=== PATIENT | male | born 1965 | race Caucasian/White ===

== ENCOUNTER 2016-06-24 03:47 | Emergency (ER) | payer OTHER ==
[2016-06-24 04:04] VITALS: RESP 16; TEMP 98.1; O2SAT 93
[2016-06-24] MEDS ORDERED: TDAP ADULT 0.5 ML INJ (BOOSTRIX) IM ONE (04:11)
[2016-06-24] MEDS ORDERED: SKIN ADHESIVE (DERMABOND) 1 EACH TP ONE (04:11)
--- NOTE | 2016-06-24 05:06 | EDPHY ---
H & P Stated Complaint: pt tripped/fell at home, hit head on bedside table - lac to mid forehead HPI/ROS: HPI The patient presents with a fall which occurred at approximately midnight tonight. The patient was walking to his bed and tripped and fell with his forehead hitting his bedside table. He did not lose consciousness. He sustained a laceration to his forehead that was bleeding heavily. He was not able to control the bleeding, so he called 911. He admits to drinking alcohol tonight. He is on Plavix for CAD. Denies any nausea or vomiting, changes to his vision, weakness in his arms or legs. He does not have a headache. REVIEW OF SYSTEMS Constitutional: No fever, no chills. Eyes: No discharge. ENT: No sore throat. Cardiovascular: No chest pain, no palpitations. Respiratory: No cough, no shortness of breath. Gastrointestinal: No abdominal pain, no vomiting. Genitourinary: No hematuria. Musculoskeletal: No back pain. Skin: No rashes. Neurological: No headache. PMHx: CAD, hypertension Soc Hx: Alcohol use, housed PHYSICAL General Appearance: Alert, no distress Eyes: Pupils equal and round no pallor or injection ENT, Mouth: Mucous membranes moist Respiratory: There are no retractions, lungs are clear to auscultation Cardiovascular: Regular rate and rhythm Gastrointestinal: Abdomen is soft and non-tender, no masses, bowel sounds normal Neurological: A&O, moves all extremities Skin: Warm and dry, mid forehead with 2 cm somewhat gaping laceration with mild active bleeding Musculoskeletal: Neck is supple non tender Extremities: symmetrical, full range of motion Psychiatric: Patient is oriented X 3, there is no agitation Source: Patient, EMS Exam Limitations: No limitations - Personal History Tetanus Vaccine Date: 2003 - Medical/Surgical History Hx Asthma: No Hx Chronic Respiratory Disease: No Hx Diabetes: No Hx Cardiac Disease: Yes Hx Renal Disease: No Hx Cirrhosis: No Hx Alcoholism: Yes Hx HIV/AIDS: No Hx Splenectomy or Spleen Trauma: No Other PMH: CABGx1, stents x5, ETOH abuse, hypertension, hyperlipidemia, psoriasis - Social History Smoking Status: Current every day smoker Constitutional: Initial Vital Signs Temperature (C) 36.7 C 06/24/16 04:01 Heart Rate 74 06/24/16 04:01 Respiratory Rate 16 06/24/16 04:01 Blood Pressure 124/87 H 06/24/16 04:01 O2 Sat (%) 93 06/24/16 04:01 O2 Delivery Mode Room Air Allergies/Adverse Reactions: No Known Allergies Allergy (Verified 06/24/16 04:04) Home Medications: Medication Instructions Recorded Adalimumab [Humira] 40 mg SQ Q14D 04/21/16 Aspirin [Aspirin 81mg (*)] 81 mg PO DAILY 04/21/16 Clopidogrel Bisulfate [Plavix (*)] 75 mg PO DAILY 04/21/16 Metoprolol Tartrate [Lopressor 50 50 mg PO BID 04/21/16 mg (*)] Simvastatin [Zocor] 40 mg PO DAILY 04/21/16 Acetaminophen [Tylenol 325mg (*)] 650 mg PO Q6HRS PRN #0 tab 04/22/16 Multivitamins [Multivitamin (*)] 1 each PO DAILY 04/22/16 Nitroglycerin [Nitrostat 0.4 mg 0.4 mg SL Q5M PRN #20 btl 04/22/16 (*)] [place]-3 Fatty Acids [Fish Oil 1000 1,000 mg PO DAILY 04/22/16 mg (*)] Medical Decision Making - Diagnostics Imaging: CT scan of head without contrast demonstrates no intracranial hemorrhage, discussed with the radiologist Dr. Clemens. Procedures: Procedure: Laceration repair with skin glue. The 2 cm laceration on the forehead. The wound was cleaned and explored to its base with a gloved finger. There were no deep structures involved. The wound was repaired with tissue adhesive. The procedure was performed by myself. ED Course/Re-evaluation: 4:00 a.m.- I met the paramedics at the bedside to obtain the report. I have ordered a CT scan, updated the patient's tetanus vaccine, and wound irrigation. 5:10 a.m.- The patient's CT scan is unremarkable, I have discussed this with him. His wound has been repaired. There is a small risk of delayed bleeding given that he is on Plavix. I have explained this to him. He is to return to the emergency room for any vomiting, headache, dizziness, vision changes or any other concerns. Differential Diagnosis: Is this is a 51-year-old man with CAD on Plavix who presents after drinking tonight, subsequently with a fall, hitting his head on a bedside table. He reports that there was significant amount of bleeding at home which is now resolved. He did not lose consciousness, does not have a headache, vomiting, any other injuries. Differential diagnosis includes intracranial hemorrhage, forehead laceration, mechanical fall. - Data Points Medications Given: Discontinued Medications Diphtheria/Tetanus/Acell Pertussis (Boostrix) 0.5 ml IM .ONCE ONE Stop: 06/24/16 04:12 Last Admin: 06/24/16 04:21 Dose: 0.5 ml Octyl Cyanoacrylate (Dermabond) 1 each TP EDNOW ONE Stop: 06/24/16 04:12 Last Admin: 06/24/16 04:21 Dose: 1 each Departure - Departure Disposition: Home, Routine, Self-Care Clinical Impression: Forehead laceration, Alcohol intoxication, Fall Condition: Good Instructions: Skin Adhesive Care (ED) Additional Instructions: Please return to the emergency room if your worse in any way. Referrals: NONE *PRIMARY CARE P,. [Primary Care Provider] - As per Instructions
[2016-06-24 05:14] VITALS: BP 95/63; PULSE 71
--- NOTE | 2016-06-24 09:38 | CT ---
Noncontrast Head CT 420 hours History: Head trauma with frontal laceration. On blood thinners. Rule out intracranial hemorrhage. Technique: Standard noncontrast head CT protocol utilizing axial images was acquired through the avelina varium. Images were reconstructed in multiple planes as well. Dose reduction techniques were utilized . Findings: The cerebral parenchyma has a normal attenuation throughout. There are no masses, intracran ial hemorrhage, subdural collections, or evidence of recent cerebral infarction. The bones are unrem arkable. Gas bubble is seen with associated mild soft tissue swelling over the frontal bone from lace ration and contusion. The paranasal sinuses are clear. Impression: 1. No acute intracranial abnormality seen. 2. Soft tissue swelling with laceration over the frontal bone. The study was performed as an emergency on-call case and discussed by telephone with Dr. Carrie foley at 427 hrs. The final interpretation is concordant with the original communication.
== END 2016-06-24 05:14 | disposition home or self-care (01) ==
LOC: EDUNIT#
PROC: 0HQ1XZZ Repair Face Skin, External Approach (ICD-10-PCS; principal; 2016-06-24)
DX: S01.81XA Laceration without foreign body of other part of head, initial encounter (principal); F10.129 Alcohol abuse with intoxication, unspecified; I10 Essential (primary) hypertension; I25.810 Atherosclerosis of coronary artery bypass graft(s) without angina pectoris; F17.200 Nicotine dependence, unspecified, uncomplicated; Z23 Encounter for immunization; Z95.5 Presence of coronary angioplasty implant and graft; Z79.82 Long term (current) use of aspirin; W01.198A Fall on same level from slipping, tripping and stumbling with subsequent striking against other object, initial encounter; Y92.009 Unspecified place in unspecified non-institutional (private) residence as the place of occurrence of the external cause

== ENCOUNTER 2018-02-05 07:37 | Observation (INO) | payer OTHER ==
--- NOTE | 2018-02-05 07:46 | EDPHY ---
H & P Time Seen by Provider: 02/05/18 07:46 HPI/ROS: CHIEF COMPLAINT: Vomiting blood HISTORY OF PRESENT ILLNESS: Patient is a history of bypass surgery and stenting on Plavix. He has had "dry heaves" for the past 2 weeks. A week ago he had black tarry diarrhea stool for 2 days which resolved. Yesterday he had 3 episodes of vomiting to with geovanny blood and over the last 24 hr dark black tarry stools again. This is associated with a little bit of abdominal discomfort, no bruising or bleeding on the skin. He does not have a previous history of upper GI bleed or varices. Currently has some nausea. Symptoms are moderate. Not associated with fever or chills, not better worse with anything. REVIEW OF SYSTEMS: Eye: no change in vision ENT: no sore throat Cardiac: no chest pain or syncope Pulmonary: no cough or SOB Abdomen: HPI Musculoskeletal: no back pain Skin: no rash Neuro: no headache Constitutional: no fever : no urinary symptoms A comprehensive 10 point review of systems is otherwise negative aside from elements mentioned in the history of present illness. PAST MEDICAL HISTORY: Includes coronary artery bypass grafting and coronary stenting on Plavix. History of hypertension, hyperlipidemia, psoriasis on Humira Social history: Tobacco smoker, continues to drink alcohol. General Appearance: Alert and conversant, cooperative. Eyes: No scleral icterus. ENT, Mouth: Dry mucous membranes. Respiratory: Normal respiratory effort, breath sounds equal, lungs are clear to auscultation. Cardiovascular: Regular rate and rhythm. No murmur. Gastrointestinal: Abdomen is soft and non tender. Rectal exam shows dark stool sent for Hemoccult. Neurological: Alert, face symmetric, normal motor and sensory in extremities. Skin: Warm and dry, no rashes. Musculoskeletal: No peripheral edema. Psychiatric: Not agitated. Emergency Department course/MDM: Initial heart rate 99, blood pressure 90/72. Zofran 4 mg IV, IV fluid hydration, CBC chemistry type and screen and fecal occult blood. 826: Hematocrit 39, was 48 in July of this year on his last draw. IV Protonix, admission for fluid resuscitation and GI consultation probable EGD. 850: Results and plan discussed with patient who is agreeable with admission and GI consultation. 930: 2nd L IV fluid ordered for borderline hypotension and tachycardia, melena on exam, and 9 point drop in hematocrit. Smoking Status: Current some day smoker Constitutional: Initial Vital Signs Temperature (C) 36.4 C 02/05/18 07:40 Heart Rate 99 02/05/18 07:40 Respiratory Rate 18 02/05/18 07:40 Blood Pressure 90/72 L 02/05/18 07:40 O2 Sat (%) 98 02/05/18 07:40 O2 Delivery Mode Room Air Allergies/Adverse Reactions: No Known Allergies Allergy (Verified 02/05/18 07:44) Home Medications: Medication Instructions Recorded Adalimumab [Humira] 40 mg SQ Q14D 04/21/16 Clopidogrel Bisulfate [Plavix (*)] 75 mg PO DAILY18 04/21/16 Metoprolol Tartrate [Lopressor 50 50 mg PO BID 04/21/16 mg (*)] Simvastatin [Zocor] 40 mg PO DAILY18 04/21/16 Multivitamins [Multivitamin (*)] 1 each PO DAILY 04/22/16 [place]-3 Fatty Acids [Fish Oil 1000 1,000 mg PO DAILY 04/22/16 mg (*)] Aspirin [Aspirin 325 mg (*)] 325 mg PO DAILY 02/05/18 Enalapril Maleate [Vasotec 2.5 MG 2.5 mg PO DAILY18 02/05/18 (*)] Medical Decision Making - Diagnostics EKG Interpretation: 12-lead EKG interpreted by me; official reading is in computer system. My interpretation is sinus rhythm rate 91 with no acute ischemic changes and normal intervals. Differential Diagnosis: Differential considered including but not limited to upper GI bleed, lower GI bleed, coagulopathy, esophageal varices, ulcer disease Consult/Admit Bed Type: [facility] 836, [facility] 845 Critical Care Time: Critical care time spent by me, Dr. Valencia, exclusively with the care of this patient was 30 minutes, exclusive of PA or [employer] time and exclusive of separate procedures. The organ system at risk was gastroenterologic hematologic and I ordered multiple diagnostics, Zofran and Protonix, IV fluid resuscitation, discussion with hospitalist and gastroenterology to stabilize the patient and prevent worsening of the patient's condition. - Data Points Laboratory Results: Laboratory Results 02/05/18 08:05 02/05/18 08:05 02/05/18 02/05/18 02/05/18 08:27 08:05 08:05 WBC RBC Hgb POC Hgb 14.6 gm/dL gm/dL (13.7-17.5) Hct POC Hct 43 % % (40-51) MCV MCH MCHC RDW Plt Count MPV Neut % (Auto) Lymph % (Auto) [place] % (Auto) Eos % (Auto) Baso % (Auto) Nucleat RBC Rel Count Absolute Neuts (auto) Absolute Lymphs (auto) Absolute Monos (auto) Absolute Eos (auto) Absolute Basos (auto) Absolute Nucleated RBC Immature Gran % Immature Gran # PT INR APTT POC Sodium 132 mEq/L L mEq/L (135-145) Sodium 133 mEq/L L mEq/L (135-145) POC Potassium 3.6 mEq/L mEq/L (3.3-5.0) Potassium 4.0 mEq/L mEq/L (3.3-5.0) POC Chloride 93 mEq/L L mEq/L (97-110) Chloride 93 mEq/L L mEq/L (97-110) Carbon Dioxide 25 mEq/l mEq/l (22-31) Anion Gap 15 mEq/L mEq/L (8-16) POC BUN 21 mg/dL mg/dL (7-23) BUN 23 mg/dL mg/dL (7-23) Creatinine 0.9 mg/dL mg/dL (0.7-1.3) POC Creatinine 1.0 mg/dL mg/dL (0.7-1.3) Estimated GFR > 60 Glucose 120 mg/dL H mg/dL (70-100) POC Glucose 119 mg/dL H mg/dL (70-100) Calcium 9.7 mg/dL mg/dL (8.5-10.4) Stool Occult Bld Scrn Patient ABO/Rh AB POSITIVE Antibody Screen NEGATIVE 02/05/18 02/05/18 02/05/18 08:05 08:05 08:04 WBC 6.78 10^3/uL 10^3/uL (3.80-9.50) RBC 3.74 10^6/uL L 10^6/uL (4.40-6.38) Hgb 14.1 g/dL g/dL (13.7-17.5) POC Hgb Hct 39.0 % L % (40.0-51.0) POC Hct MCV 104.3 fL H fL (81.5-99.8) MCH 37.7 pg H pg (27.9-34.1) MCHC 36.2 g/dL g/dL (32.4-36.7) RDW 12.0 % % (11.5-15.2) Plt Count 233 10^3/uL 10^3/uL (150-400) MPV 10.1 fL fL (8.7-11.7) Neut % (Auto) 71.1 % % (39.3-74.2) Lymph % (Auto) 16.5 % % (15.0-45.0) [place] % (Auto) 11.5 % % (4.5-13.0) Eos % (Auto) 0.3 % L % (0.6-7.6) Baso % (Auto) 0.3 % % (0.3-1.7) Nucleat RBC Rel Count 0.0 % % (0.0-0.2) Absolute Neuts (auto) 4.82 10^3/uL 10^3/uL (1.70-6.50) Absolute Lymphs (auto) 1.12 10^3/uL 10^3/uL (1.00-3.00) Absolute Monos (auto) 0.78 10^3/uL 10^3/uL (0.30-0.80) Absolute Eos (auto) 0.02 10^3/uL L 10^3/uL (0.03-0.40) Absolute Basos (auto) 0.02 10^3/uL 10^3/uL (0.02-0.10) Absolute Nucleated RBC 0.00 10^3/uL 10^3/uL (0-0.01) Immature Gran % 0.3 % % (0.0-1.1) Immature Gran # 0.02 10^3/uL 10^3/uL (0.00-0.10) PT 13.5 SEC SEC (12.0-15.0) INR 1.01 (0.83-1.16) APTT 30.0 SEC SEC (23.0-38.0) POC Sodium Sodium POC Potassium Potassium POC Chloride Chloride Carbon Dioxide Anion Gap POC BUN BUN Creatinine POC Creatinine Estimated GFR Glucose POC Glucose Calcium Stool Occult Bld Scrn POSITIVE H (NEGATIVE) Patient ABO/Rh Antibody Screen Medications Given: Discontinued Medications Sodium Chloride (Ns) 1,000 mls @ 0 mls/hr IV EDNOW ONE; Wide Open PRN Reason: Protocol Stop: 02/05/18 07:58 Last Admin: 02/05/18 08:19 Dose: 1,000 mls Ondansetron HCl (Zofran) 4 mg IVP EDNOW ONE Stop: 02/05/18 08:12 Last Admin: 02/05/18 08:19 Dose: 4 mg Pantoprazole Sodium (Protonix) 80 mg IVP EDNOW ONE Stop: 02/05/18 08:39 Last Admin: 02/05/18 08:42 Dose: 80 mg Point of Care Test Results: Chemistry 02/05/18 08:27 POC Sodium 132 mEq/L L mEq/L (135-145) POC Potassium 3.6 mEq/L mEq/L (3.3-5.0) POC Chloride 93 mEq/L L mEq/L (97-110) POC BUN 21 mg/dL mg/dL (7-23) POC Creatinine 1.0 mg/dL mg/dL (0.7-1.3) POC Glucose 119 mg/dL H mg/dL (70-100) ISTAT H&H 02/05/18 08:27 POC Hgb 14.6 gm/dL gm/dL (13.7-17.5) POC Hct 43 % % (40-51) Departure - Departure Disposition: [facility] Inpatient Acute Clinical Impression: Upper GI bleeding Condition: Fair
[2018-02-05] MEDS ORDERED: NS 1,000 ML IV ONE ×2 (07:57→09:25)
[2018-02-05] MEDS ORDERED: ONDANSETRON 4 MG/2 ML VIAL IVP ONE (08:11)
[2018-02-05 08:23] LABS: PLATELET COUNT 233 10^3/uL (150-400)
--- NOTE | 2018-02-05 08:28 | CPEKG ---
Test Reason : OPEN Blood Pressure : / mmHG Vent. Rate : 091 BPM Atrial Rate : 092 BPM P-R Int : 155 ms QRS Dur : 100 ms QT Int : 362 ms P-R-T Axes : 032 071 025 degrees QTc Int : 446 ms Sinus rhythm Probable left atrial enlargement Confirmed by Oscar Valencia ([id number]) on 02/05/2018 8:27:31 AM Referred By: Confirmed By:Oscar Valencia
[2018-02-05 08:30] LABS: INR 1.01 (0.83-1.16); PROTIME(PATIENT) 13.5 SEC (12.0-15.0)
[2018-02-05] MEDS ORDERED: PANTOPRAZOLE SODIUM 40 MG VIAL IVP ONE (08:38)
[2018-02-05] MEDS ORDERED: ACETAMINOPHEN 325 MG TAB PO PRN (09:11)
[2018-02-05] MEDS ORDERED: FLUMAZENIL 0.5 MG/5 ML MDV IVP PRN (09:14)
[2018-02-05] MEDS ORDERED: LORazepam 2 MG/ML INJ IVP PRN (09:14)
[2018-02-05] MEDS ORDERED: D5W NS W/ 20 KCl/L 1,000 ML IV SCH (09:45)
[2018-02-05] MEDS ORDERED: OCTREOTIDE ACETATE 500 MCG in D5W 50 ML IV SCH (09:45)
[2018-02-05] MEDS ORDERED: LR 1,000 ML IV ONE (11:12)
--- NOTE | 2018-02-05 11:32 | PDGENHP ---
History and Physical - Chief Complaint blood in vomit - History of Present Illness 52yo M with history of CAD s/p CABG (2010) and coronary stenting (2011), etoh abuse who presents with 2 weeks of black, tarry stools. Noticed bright red blood in emesis that started yesterday and prompted him to come to ED this morning. He reports diffuse abdominal discomfort and some positional dizziness since yesterday as well. Denies fevers. Drinks 5 "light beers" per day, previously much more. No known cirrhosis. Took aspirin and plavix yesterday. Also has been taking advil PM nightly for many years. In the ED, BP noted to be 90/70s with mild tachycardia. Hgb 14.1 which was down from 16.8 six months ago. He was given IVF, IV PPI, and GI was consulted. Case discussed with ED physician Dr Oscar Whiting and prior records reviewed. History Information - Allergies/Home Medication List Allergies/Adverse Reactions: No Known Allergies Allergy (Verified 02/05/18 07:44) Home Medications: Adalimumab [Humira] 40 mg SQ Q14D 04/21/16 [Last Taken 01/26/18] Clopidogrel Bisulfate [Plavix (*)] 75 mg PO DAILY18 04/21/16 [Last Taken ] Metoprolol Tartrate [Lopressor 50 mg (*)] 50 mg PO BID 04/21/16 [Last Taken 02/13 21:00] Simvastatin [Zocor] 40 mg PO DAILY18 04/21/16 [Last Taken 02/04/18] Multivitamins [Multivitamin (*)] 1 each PO DAILY 04/22/16 [Last Taken 04/21/16] [place]-3 Fatty Acids [Fish Oil 1000 mg (*)] 1,000 mg PO DAILY 04/22/16 [Last Taken 04/21/16] Aspirin [Aspirin 325 mg (*)] 325 mg PO DAILY 02/05/18 [Last Taken 02/04/18] Enalapril Maleate [Vasotec 2.5 MG (*)] 2.5 mg PO DAILY18 02/05/18 [Last Taken ] I have personally reviewed and updated: family history, medical history, social history, surgical history - Past Medical History Additional medical history: CAD s/p 2v CABG (08/2010) complicated by medication non-adherence leading to PCI with 5 stents 10/2011; HTN; Psoriasis; EtOH abuse complicated by withdrawals - Surgical History Additional surgical history: CABG (2010) - Family History Additional family history: mother - CAD, HTN; maternal grandfather - CAD; no family hx of bleeding or clotting disorders - Social History Smoking Status: Current some day smoker Alcohol Use: Other (drinks 5 beers/day) Drug Use: None Additional social history: 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 Review of Systems Review of Systems: ROS: 10pt was reviewed & negative except for what was stated in HPI & below Physical Exam Physical Exam: Temp Pulse Resp BP Pulse Ox 37.1 C 89 18 103/67 95 02/05/18 11:13 02/05/18 11:13 02/05/18 11:13 02/05/18 11:13 02/05/18 11:13 Constitutional: no apparent distress, appears nourished, not in pain Eyes: PERRL, anicteric sclera, EOMI Ears, Nose, Mouth, Throat: moist mucous membranes, hearing normal, ears appear normal, no oral mucosal ulcers Cardiovascular: regular rate and rhythym, no murmur, rub, or gallop, No JVD, No edema Respiratory: no respiratory distress, no rales or rhonchi, clear to auscultation Gastrointestinal: normoactive bowel sounds, soft, non-tender abdomen, no palpable masses Skin: warm, normal color, no rashes or abrasions, no fluctuance, no induration, other (no stigmata of chronic liver disease), No mottled Neurologic: other (no tongue fasciculations, no hand tremor) Psychiatric: interacting appropriately, not anxious, not encephalopathic, thought process linear Lab Data & Imaging Review 02/05/18 08:05 02/05/18 08:05 WBC 6.78 10^3/uL (3.80-9.50) 02/05/18 08:05 RBC 3.74 10^6/uL (4.40-6.38) L 02/05/18 08:05 Hgb 14.1 g/dL (13.7-17.5) 02/05/18 08:05 POC Hgb 14.6 gm/dL (13.7-17.5) 02/05/18 08:27 Hct 39.0 % (40.0-51.0) L 02/05/18 08:05 POC Hct 43 % (40-51) 02/05/18 08:27 MCV 104.3 fL (81.5-99.8) H 02/05/18 08:05 MCH 37.7 pg (27.9-34.1) H 02/05/18 08:05 MCHC 36.2 g/dL (32.4-36.7) 02/05/18 08:05 RDW 12.0 % (11.5-15.2) 02/05/18 08:05 Plt Count 233 10^3/uL (150-400) 02/05/18 08:05 MPV 10.1 fL (8.7-11.7) 02/05/18 08:05 Neut % (Auto) 71.1 % (39.3-74.2) 02/05/18 08:05 Lymph % (Auto) 16.5 % (15.0-45.0) 02/05/18 08:05 [place] % (Auto) 11.5 % (4.5-13.0) 02/05/18 08:05 Eos % (Auto) 0.3 % (0.6-7.6) L 02/05/18 08:05 Baso % (Auto) 0.3 % (0.3-1.7) 02/05/18 08:05 Nucleat RBC Rel Count 0.0 % (0.0-0.2) 02/05/18 08:05 Absolute Neuts (auto) 4.82 10^3/uL (1.70-6.50) 02/05/18 08:05 Absolute Lymphs (auto) 1.12 10^3/uL (1.00-3.00) 02/05/18 08:05 Absolute Monos (auto) 0.78 10^3/uL (0.30-0.80) 02/05/18 08:05 Absolute Eos (auto) 0.02 10^3/uL (0.03-0.40) L 02/05/18 08:05 Absolute Basos (auto) 0.02 10^3/uL (0.02-0.10) 02/05/18 08:05 Absolute Nucleated RBC 0.00 10^3/uL (0-0.01) 02/05/18 08:05 Immature Gran % 0.3 % (0.0-1.1) 02/05/18 08:05 Immature Gran # 0.02 10^3/uL (0.00-0.10) 02/05/18 08:05 PT 13.5 SEC (12.0-15.0) 02/05/18 08:05 INR 1.01 (0.83-1.16) 02/05/18 08:05 APTT 30.0 SEC (23.0-38.0) 02/05/18 08:05 POC Sodium 132 mEq/L (135-145) L 02/05/18 08:27 Sodium 133 mEq/L (135-145) L 02/05/18 08:05 POC Potassium 3.6 mEq/L (3.3-5.0) 02/05/18 08:27 Potassium 4.0 mEq/L (3.3-5.0) 02/05/18 08:05 POC Chloride 93 mEq/L (97-110) L 02/05/18 08:27 Chloride 93 mEq/L (97-110) L 02/05/18 08:05 Carbon Dioxide 25 mEq/l (22-31) 02/05/18 08:05 Anion Gap 15 mEq/L (8-16) 02/05/18 08:05 POC BUN 21 mg/dL (7-23) 02/05/18 08:27 BUN 23 mg/dL (7-23) 02/05/18 08:05 Creatinine 0.9 mg/dL (0.7-1.3) 02/05/18 08:05 POC Creatinine 1.0 mg/dL (0.7-1.3) 02/05/18 08:27 Estimated GFR > 60 02/05/18 08:05 Glucose 120 mg/dL (70-100) H 02/05/18 08:05 POC Glucose 119 mg/dL (70-100) H 02/05/18 08:27 Calcium 9.7 mg/dL (8.5-10.4) 02/05/18 08:05 Stool Occult Bld Scrn POSITIVE (NEGATIVE) H 02/05/18 08:04 Patient ABO/Rh AB POSITIVE 02/05/18 08:05 Antibody Screen NEGATIVE 09/10/18 08:05 Visualized and Interpreted EKG results: Yes EKG additional interpertation: NSR, no acute ischemia, QTc 446 Assessment & Plan Assessment: 52yo M with history of CAD s/p CABG (2010) and coronary stenting (2012), etoh abuse who presents with evidence of upper GI bleed. Plan: #Upper GI bleed: Risk factors include ongoing etoh use, dual antiplatelet therapy, and concomitant nsaid use. He had abdominal US in 2012 which showed hepatomegaly but no cirrhosis and he does not have stigmata of chronic liver disease on exam. Ddx: PUD, gastritis/esophagitis, MW tear, less likely esophageal varices. - Maintain large bore IV access - Type and screened - Pantoprazole IV BID - Holding antiplatelet/anticoagulant agents - GI consulted (Dr Espino), plan for EGD today #Hypotension: BP 90/70s. - Hold home anti-hypertensives - IVF PRN to keep MAP>65 #EtOH abuse: Has history of withdrawal but no seizures; at risk during this hospitalization. - CIWA - Thiamine, MV, folate; monitor and replete electrolytes #CAD: Had CABG in 2010 followed by placement of 5 stents in 2012. Currently without anginal sxs. - Holding aspirin, clopidogrel, BB as above - Continue statin #Psoriasis: Reportedly on biweekly humira. Diet: NPO VTE ppx: high risk, SCDs due to bleeding risk Code: full Disposition: Admit under observation to SDU for management of GI bleed as above.
[2018-02-05] MEDS ORDERED: PROPOFOL 200 MG/20 ML VIAL ONE ×2 (11:55)
[2018-02-05] MEDS ORDERED: fentaNYL 100 MCG/2 ML INJ ONE (12:21)
[2018-02-05] MEDS ORDERED: ONDANSETRON 4 MG/2 ML VIAL ONE (12:24)
[2018-02-05] MEDS ORDERED: DEXAMETHASONE 4 MG/ML VIAL ONE (12:24)
[2018-02-05] MEDS ORDERED: LIDOCAINE 2% 100 MG/5 ML SYR ONE (12:24)
[2018-02-05] MEDS ORDERED: SUCCINYLCHOLINE CHLORIDE 200 MG/10 ML SYR IVP ONE (12:24)
[2018-02-05] MEDS ORDERED: HYDROmorphONE/DILAUDID 1 MG/ML INJ IVP PRN (12:29)
[2018-02-05] MEDS ORDERED: ACETAMINOPHEN 500 MG TAB PO PRN (12:29)
[2018-02-05] MEDS ORDERED: HYDROCODONE/APAP 5/325 TAB PO PRN (12:29)
[2018-02-05] MEDS ORDERED: LR 500 ML IV PRN (12:29)
[2018-02-05] MEDS ORDERED: oxyCODONE IR 5 MG TAB PO PRN (12:29)
[2018-02-05] MEDS ORDERED: fentaNYL 100 MCG/2 ML INJ IVP PRN (12:29)
[2018-02-05] MEDS ORDERED: METOCLOPRAMIDE 10 MG/2 ML VIAL IVP PRN (12:29)
[2018-02-05] MEDS ORDERED: NALOXONE HCL 0.4 MG/ML INJ IVP PRN (12:29)
[2018-02-05] MEDS ORDERED: ALBUTEROL 3 ML DEYVIAL IH PRN (12:29)
[2018-02-05] MEDS ORDERED: PROMETHAZINE HCL 25 MG/ML INJ IVP PRN (12:29)
[2018-02-05] MEDS ORDERED: ONDANSETRON 4 MG/2 ML VIAL IVP PRN (12:29)
--- NOTE | 2018-02-05 12:29 | PDANEPAE ---
ANE History of Present Illness upper GI bleed for EGD ANE Past Medical History - Cardiovascular History Hx Hypertension: Yes Hx Arrhythmias: No Hx Chest Pain: No Hx Coronary Artery / Peripheral Vascular Disease: Yes Hx CHF / Valvular Disease: No Hx Palpitations: No - Pulmonary History Hx COPD: No Hx Asthma/Reactive Airway Disease: No Hx Recent Upper Respiratory Infection: No Hx Oxygen in Use at Home: No Hx Sleep Apnea: No Sleep Apnea Screening Result - Last Documented: Positive - Endocrine History Hx Diabetes: No Obesity: no - Chronic Pain History Chronic Pain: No ANE Review of Systems Review of systems is: negative Review of Systems: ANE Patient History - Allergies Allergies/Adverse Reactions: No Known Allergies Allergy (Verified 02/05/18 07:44) - Home Medications Home medications: home medication list seen and reviewed Home Medications: Adalimumab [Humira] 40 mg SQ Q14D 04/21/16 [Last Taken 01/26/18] Clopidogrel Bisulfate [Plavix (*)] 75 mg PO DAILY18 04/21/16 [Last Taken ] Metoprolol Tartrate [Lopressor 50 mg (*)] 50 mg PO BID 04/21/16 [Last Taken 02/13 21:00] Simvastatin [Zocor] 40 mg PO DAILY18 04/21/16 [Last Taken 02/04/18] Multivitamins [Multivitamin (*)] 1 each PO DAILY 04/22/16 [Last Taken 04/21/16] [place]-3 Fatty Acids [Fish Oil 1000 mg (*)] 1,000 mg PO DAILY 04/22/16 [Last Taken 04/21/16] Aspirin [Aspirin 325 mg (*)] 325 mg PO DAILY 02/05/18 [Last Taken 02/04/18] Enalapril Maleate [Vasotec 2.5 MG (*)] 2.5 mg PO DAILY18 02/05/18 [Last Taken ] - NPO status NPO Since - Liquids (Date): 02/04/18 NPO Since - Liquids (Time): 12:00 NPO Since - Solids (Date): 02/04/18 NPO Since - Solids (Time): 12:00 - Anes Hx Anes Hx: no prior problems - Smoking Hx Smoking Status: Current some day smoker - Alcohol Use Alcohol Use: Heavy (drinks 5 beers/day) ANE Labs/Vital Signs - Labs Result Diagrams: 02/05/18 08:05 02/05/18 08:05 - Vital Signs Blood Pressure: 103/67 Heart Rate: 89 Respiratory Rate: 18 O2 Sat (%): 95 Height: 175.26 cm Weight: 74.843 kg ANE Physical Exam - Airway Neck exam: FROM Mallampati Score: Class 3 Mouth exam: small mouth opening - Pulmonary Pulmonary: no respiratory distress - Cardiovascular Cardiovascular: regular rate and rhythym - ASA Status ASA Status: III ANE Anesthesia Plan Anesthesia Plan: GA with mask Urgent/Emergent Case: [place] completed preop but documented later for safe timely pt care
--- NOTE | 2018-02-05 12:29 | POSTANESTH ---
Post Anesthetic Evaluation Cardiovascular Status: Normal, Stable Respiratory Status: Normal, Stable Level of Consciousness/Mental Status: Can Participate in Eval Pain Control: Adequate, Prn Tx Ordered Nausea/Vomiting Control: Adequate, Prn Tx Ordered Complications Possibly Related to Anesthesia: None Noted
--- NOTE | 2018-02-05 13:03 | GIREPORT ---
[facility] - Endoscopy Department Patient Name: Merrill Tripp Procedure Date: 02/05/2018 11:27 AM Patient Type: Inpatient Attending MD/ ER Physician: Ramez Espino MD Procedure: Upper GI endoscopy Indications: Note dictated, consult appreciated. Hematemesis. Providers: Ramez Espino MD, [facility] Referring MD: John Price MD; [facility] Hospitalist service Medicines: See the Anesthesia note for documentation of the administered medicatio ns Complications: No immediate complications. Description of Procedure: After obtaining informed consent, the endoscope was passed under direct vision. Throughout the procedure, the patient's blood pressure, pulse, and oxygen saturations were monitored continuously. The Endoscope was intro duced through the mouth, and advanced to the second part of duodenum. 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 No evidence of bleeding. Localized moderate inflammation was found in the gastric antrum, with s ome erythema and superficial erosions. Biopsies were taken with a cold forc eps for Helicobacter pylori testing from the antrum and cardia. One non-bleeding superficial duodenal ulcer with no stigmata of bleedin g was found in the first portion of the duodenum. The lesion was 6 mm in larg est dimension. Nearby, in the second portion of the duodenum, on the latera l wall, was a small duodenal nodule (biopsied) Estimated Blood Loss: none. Post Op Diagnosis: - Superficial duodenal ulcer, as above. Now, relatively little risk of rebleed. Overall, suspect due to advil and aspirin use. Recommendation: - biopsies pending, including to r/o H. pylori - feed - buffcap - change PPI to oral bid - cont. serial H/Hs - no octreotide needed - low-dose librium for DT prophy'x If Hct stable in A.M., ok to d/c home. Upon discharge, would recommend: a) generic PPI bid for three weeks, then daily retirement b) no plavix x 3 days c) no aspirin x 7 days, then baby aspirin only d) no further advil PM or NSAIDs e) I will arrange repeat EGD in about three months, to bx his Doll's Thank you for allowing me to help in the management of this patient. Kenzie Myrick MD Ramez Espino MD 02/05/2018 1:03:42 PM This report has been signed electronicallyPeter MD Kenzie Number of Addenda: 0 Note Initiated On: 02/05/2018 11:27 AM [email or web address]
[2018-02-05] MEDS: THIAMINE HCL 500 MG in NS 100 ML IV SCH (13:30)
--- NOTE | 2018-02-05 13:32 | GCON ---
GI INPATIENT CONSULTATION DATE OF CONSULTATION: 02/05/2018 I was kindly requested to see the patient by Dr. Oscar Valencia in consultation for a chief complaint of gastrointestinal bleeding. He is a 52-year-old white male who may have had some melena a week ago. This resolved. Yesterday, however, he had 3 episodes of vomiting geovanny bright red blood, and again began to have some black, tarry stools. He has had some mild abdominal discomfort with this. He denies rigors, chills, weight loss. He does use Advil PM every night, to help him sleep. He is on aspirin for his heart. He is also on Plavix. PAST MEDICAL HISTORY: 1. As above. 2. Coronary artery bypass graft and coronary stenting. 3. Hypertension. 4. Elevated lipids. 5. Psoriasis. MEDICATIONS: Outpatient medications include the above and Humira. Inpatient medications include IV Protonix and Ocuvite. ALLERGIES: No known drug allergies. SOCIAL HISTORY: He does drink alcohol daily. FAMILY HISTORY: Negative for similar bleeding. REVIEW OF SYSTEMS: Positive pertinent review of systems as per my HPI. Otherwise, complete review of systems is negative making a total of 10 systems. PHYSICAL EXAM: CONSTITUTIONAL: Nontoxic-appearing gentleman. SKIN: Some spider angioma on his nose. No jaundice. EYES: Pupils equal, equal, round and reactive to light and accommodation. EARS, NOSE, MOUTH, AND THROAT: Oropharynx without masses, moist mucosa. CARDIOVASCULAR: Normal S2, normal PMI. RESPIRATORY: Lungs clear to auscultation and percussion anteriorly. GASTROINTESTINAL: Abdomen soft, nontender. NEUROLOGIC: Grossly nonfocal, cranial nerves grossly intact. PSYCHIATRIC: Orientation, insight appropriate. MUSCULOSKELETAL: Strength grossly normal throughout, with normal station. LABORATORIES: Include a hematocrit of 39%. Normal platelet count. Normal coags. Sodium 133. ASSESSMENT: Description of hematemesis, melena. Possibilities include peptic ulcer disease from his Advil and/or aspirin use, Jadyn-Pak tear, or even possibly varices with his alcohol use. Suspect the above exacerbated by Plavix. PLAN: 1. Urgent upper endoscopy. Certainly, with his coronary artery disease, including bypass and stents, recent use of Plavix, hypertension, elevated lipids , use of Humira, etc., he is at increased risk for this procedure. However, suspected benefits outweigh the risks, and suspect he would do well. 2. Further management depending on the above. Thank you for allowing me to help in the management of this patient. /[id number]/MODL MTDD
[2018-02-05] MEDS: PANTOPRAZOLE SODIUM 40 MG TAB PO SCH ×2 (13:44→19:58)
[2018-02-05] MEDS: PHYTONADIONE 2.5 MG/2.5 ML ORAL UDL PO SCH (13:58)
[2018-02-05] MEDS ORDERED: PANTOPRAZOLE SODIUM 40 MG VIAL IVP SCH ×2 (15:00→21:00)
--- NOTE | 2018-02-05 15:20 | ASMTCMCOM ---
CM Note CM Note Notes: 52yr old male admitted for a GIB. He has a Hx of HTN, CAD s/p CABG, coronary stenting, Psoriasis, ETOH abuse and he is a smoker. Patient to have an endoscopy. CM not anticipating that patient will have discharge needs. Date Signed: 02/05/2018 03:19 PM Electronically Signed By:Estelita Cam LCSW
[2018-02-05] MEDS ORDERED: ATORVASTATIN CALCIUM 20 MG TAB PO SCH (18:00)
[2018-02-05] MEDS: chlordiazePOXIDE 25 MG CAP PO SCH (19:58)
[2018-02-05] MEDS ORDERED: MELATONIN 3 MG TAB PO PRN (20:20)
[2018-02-06 06:02] LABS: PLATELET COUNT 178 10^3/uL (150-400)
[2018-02-06 07:38] VITALS: BP 108/77
[2018-02-06] MEDS: PANTOPRAZOLE SODIUM 40 MG TAB PO SCH (08:25)
[2018-02-06] MEDS: chlordiazePOXIDE 25 MG CAP PO SCH (08:25)
[2018-02-06] MEDS: THIAMINE HCL 500 MG in NS 100 ML IV SCH (08:28)
--- NOTE | 2018-02-06 08:36 | SOAPPROG ---
SOAP Progress Note Assessment/Plan: Assessment/Plan: Hct stable x multiple values. Doubt any further bleeding. - if clinically stable, ok to d/c home from a G.I. standpoint. Please see my recs from yesterday's EGD report. Would also recommend iron replacement therapy for 8 weeks. F/u PCP prn. I will sign off; I will f/u on biopsies, as well as arrange for him a repeat EGD in about three months, to biopsy his Dlol's esophagus. Else, please call if we can be of further help [phone] Thanks! 02/06/18 12:48 Subjective: cc: UGI bleed No further e/o significant bleeding. Denies rigors, chills, sweats, weight loss. Objective: Vital Signs Temp Pulse Resp BP Pulse Ox 36.8 C 71 14 108/77 100 02/06/18 07:36 02/06/18 07:36 02/06/18 07:36 02/06/18 07:36 02/06/18 07:36 Laboratory Results 02/06/18 05:35 02/06/18 05:35 02/05/18 02/06/18 02/07/18 05:59 05:59 05:59 Intake Total 2500 Output Total 0 Balance 2500 PT 13.5 SEC (12.0-15.0) 02/05/18 08:05 INR 1.01 (0.83-1.16) 02/05/18 08:05 Physical Exam - Physical Exam General Appearance: WD/WN, alert, no apparent distress EENT: PERRL/EOMI, normal ENT inspection, pharynx normal, TMs normal Neck: non-tender, full range of motion, supple, normal inspection Respiratory: chest non-tender, lungs clear, normal breath sounds Cardiac/Chest: normal peripheral pulses, regular rate, rhythm Peripheral Pulses: 2+: carotid (R), carotid (L), femoral (R), femoral (L), dorsalis-pedis (R), dorsalis-pedis (L) Abdomen: normal bowel sounds, non-tender, soft Male Genitalia: deferred Rectal: deferred Back: Normal inspection Skin: normal color, warm/dry Lymphatic: no adenopathy Extremities: normal range of motion, non-tender, normal inspection, normal capillary refill Neuro/Psych: no motor/sensory deficits, alert, normal mood/affect, oriented x 3 ICD10 Worksheet Patient Problems: Problems Problem Status Onset CAD (coronary artery disease) Acute Chest pain Acute Upper GI bleeding Acute
[2018-02-06] MEDS ORDERED: MULTIVITAMINS 1 EACH TAB PO SCH (09:00)
[2018-02-06] MEDS ORDERED: FOLIC ACID 1 MG TAB PO SCH (09:00)
[2018-02-06] MEDS: PHYTONADIONE 2.5 MG/2.5 ML ORAL UDL PO SCH (09:48)
--- NOTE | 2018-02-06 19:52 | PDDCSUM ---
Discharge Summary Discharge Summary: Date of Admission: 02/05/2018 Date of Discharge: 02/06/2018 Consultants: gastroenterology (Dr Espino) Procedures: EGD Discharge Diagnoses: 1. Subacute blood loss anemia 2. Upper GI bleed due to duodenal ulcer 3. Doll's esophagus 4. CAD on DAPT 5. EtOH abuse 6. Psoriasis on anti-TNF Brief Hospital Course by Problem: 52yo M with history of CAD s/p CABG (2010) and coronary stenting (2011), etoh abuse who presented with evidence of upper GI bleed. 1. Upper GI bleed: Had melena and hematemesis. EGD showed non-bleeding duodenal ulcer, no intervention undertaken. Likely bled in setting of daily advil use on top of DAPT. Encouraged to stop advil. Holding plavix for 3 days and aspirin for 7 days. Started BID PPI x3 weeks, then daily. 2. Macrocytic anemia: Attributable to etoh use. He was started on PO iron supplementation for GI blood loss as well. 3. Doll's esophagus: Noted during EGD. Biopsies taken. Dr Espino wants to repeat EGD in 3 months time. 4. EtOH abuse: Drinks 5 beers daily, previously much heavier. Did not withdraw this hospitalization but has in the past. Counseled on cessation, he is not very motivated. 5. CAD: Had CABG in 2010 followed by placement of 5 stents in 2011. Some issues with med compliance in the past but reports adherence now. Held DAPT as above, continued beta ángel, statin, and ACEi. 6. Psoriasis: No flare. On biweekly humira. Medications: Please see EMR for complete list. Additions this hospitalization include a PPI BID in addition to FeSO4 supplementation. We are holding his clopidogrel for 3 days and aspirin for 7 days. Follow Up Plan: 1. Follow up H pylori testing and biopsies taken during EGD to evaluate Doll' s esophagus 2. Repeat EGD in 3 months to again biopsy area of Doll's 3. Continue BID PPI for 3 weeks, then daily 4. Hold aspirin for 7 days and clopidogrel for 3 days 5. EtOH cessation Physical Exam: Vitals reviewed, normotensive and normal heart rate. He is alert and oriented. RRR on cardiac exam without murmur. Lungs clear. Abdomen soft and non-tender. No stigmata of chronic liver disease on skin exam.
== END 2018-02-06 09:56 | disposition home or self-care (01) ==
LOC: INTOOBSV 08:38 → F2N 10:32
PROVIDERS: ADMIT Internal Medicine; ATTEND Internal Medicine
DX: K26.4 Chronic or unspecified duodenal ulcer with hemorrhage (principal); D62 Acute posthemorrhagic anemia; K31.89 Other diseases of stomach and duodenum; K22.70 Barrett's esophagus without dysplasia; E86.9 Volume depletion, unspecified; I95.9 Hypotension, unspecified; F10.10 Alcohol abuse, uncomplicated; F17.200 Nicotine dependence, unspecified, uncomplicated; I25.10 Atherosclerotic heart disease of native coronary artery without angina pectoris; I10 Essential (primary) hypertension; E78.5 Hyperlipidemia, unspecified; L40.9 Psoriasis, unspecified; Z79.82 Long term (current) use of aspirin; Z79.02 Long term (current) use of antithrombotics/antiplatelets; Z95.1 Presence of aortocoronary bypass graft; Z95.5 Presence of coronary angioplasty implant and graft
CPT/HCPCS: 43239; 90471; 93005; 96361; 96374; 96375; 99285; G0378; 82435-PO; 82565-PO; 82947-PO; 84132-PO; 84295-PO; 84520-PO; 85014-PO; G0008; J0330; J1100; J2001; J2354; J2405; J2704; J3010; J3411